=== PATIENT | male | born 1985 | race Caucasian/White ===

== ENCOUNTER 2017-10-26 19:38 | Emergency (ER) | payer OTHER ==
--- NOTE | 2017-10-26 20:41 | RAD REPORT ---
EXAM DESCRIPTION: RAD - Chest Single View - 10/26/2017 8:35 pm CLINICAL HISTORY: Chest pain. COMPARISON: None. FINDINGS: Portable technique limits examination quality. The lungs are grossly clear. The heart is normal in size. No displaced fractures. IMPRESSION: No acute intrathoracic process suspected.
[2017-10-26 20:50] LABS: Absolute Lymphocytes (CBC) 3.2 K/uL (0.7-4.9); Absolute Monocytes 0.8 K/uL (0.1-1.3); Absolute Neutrophil 5.8 K/uL (1.8-8.0); Basophils % 1.1 % (0-1.3); Eosinophils % 1.1 % (0-4.4); Hematocrit 42.7 % (39.6-49.0); Lymphocytes % 31.7 % (15.3-44.8); MCH 27.2 pg (27.0-35.0); MCV 83.3 fL (80-100); MPV 8.1 fL (7.6-11.3); Monocytes % 8.1 % (3.3-12.3); RBC Red Blood Cell Count 5.12 M/uL (4.33-5.43)
[2017-10-26 20:56] LABS: Protime INR 1.15
[2017-10-26 20:57] LABS: Bicarbonate 29 mEq/L (21-31); Glucose Level 93 mg/dL (65-120); Potassium 3.8 mEq/L (3.6-5.0); Sodium Level 134 mEq/L (135-145)
[2017-10-26 21:03] LABS: ALT/SGPT 20 IU/L (10-60); AST/SGOT 18 IU/L (10-42); Albumin 4.2 g/dL (3.2-5.5); Alkaline Phosphatase 68 IU/L (42-121); BUN Blood Urea Nitrogen 11 mg/dL (6-20); Bilirubin Direct 0.1 mg/dL (0-0.2); Bilirubin Total 0.9 mg/dL (0.3-1.2); Creatine Phosphokinase 110 IU/L (22-269); Magnesium 1.8 mg/dL (1.8-2.5); Protein, Total 7.7 g/dL (6.0-8.3)
[2017-10-26 21:06] LABS: CKMB Creatine Kinase MB 0.6 ng/ml (0.3-4.0)
--- NOTE | 2017-10-26 21:55 | ER ---
Nurse's Notes [facility] Name: Bolivar Brown Age: 32 yrs Sex: Male : 1985 Arrival Date: 10/26/2017 Time: 19:41 Bed 19 Private MD: Diagnosis: Chest pain, unspecified Presentation: 10/26 19:57 Presenting complaint: Patient states: I have been having pain in my upper back, chest, la1 and pain when I swallow that feels like it is deep in my chest. Transition of care: patient was not received from another setting of care. Onset of symptoms was October 26, 2017. Care prior to arrival: None. 19:57 Method Of Arrival: Ambulatory la1 19:57 Acuity: PEDRO 3 la1 Triage Assessment: 22:13 General: Behavior is calm, cooperative, appropriate for age. Musculoskeletal: No tl1 deficits noted. Historical: - Allergies: 19:59 No Known Allergies; la1 - PMHx: 19:59 Hypertension; la1 - Immunization history:: Adult Immunizations up to date. - Social history:: Smoking status: Patient/guardian denies using tobacco. - Family history:: not pertinent. Screenin:45 Abuse screen: Denies threats or abuse. Denies injuries from another. Nutritional tl1 screening: No deficits noted. Tuberculosis screening: No symptoms or risk factors identified. Fall Risk IV access (20 points). Assessment: 20:53 General: Appears in no apparent distress. Pain: Complains of pain in chest. Neuro: tl1 Level of Consciousness is awake, alert, obeys commands, Oriented to person, place, time, situation. Cardiovascular: Reports chest pain. Respiratory: Airway is patent Trachea midline Respiratory effort is even, unlabored, Breath sounds are clear bilaterally. GI: Abdomen is obese, Bowel sounds present X 4 quads. Abd is soft and non tender X 4 quads. : No signs and/or symptoms were reported regarding the genitourinary system. EENT: No signs and/or symptoms were reported regarding the EENT system. Derm: No signs and/or symptoms reported regarding the dermatologic system. 22:12 Reassessment: Patient appears in no apparent distress at this time. Patient and/or tl1 family updated on plan of care and expected duration. Pain level reassessed. Patient is alert, oriented x 3, equal unlabored respirations, skin warm/dry/pink. Patient denies pain at this time. Patient states feeling better. Patient states symptoms have improved. Vital Signs: 19:59 BP 170 / 110; Pulse 86; Resp 16; Temp 97.9; Pulse Ox 100% on R/A; Weight 185.07 kg; la1 Height 5 ft. 11 in. (180.34 cm); 20:44 BP 134 / 76; Pulse 80; Resp 20; Pulse Ox 98% ; tl1 22:12 BP 132 / 89; Pulse 83; Resp 17; Temp 98; Pulse Ox 100% on R/A; Pain 0/10; tl1 19:59 Body Mass Index 56.90 (185.07 kg, 180.34 cm) la1 ED Course: 19:41 Patient arrived in ED. do 19:58 Triage completed. la1 19:59 Arm band placed on right wrist. la1 20:00 Patient has correct armband on for positive identification. Placed in gown. Bed in low tl1 position. Call light in reach. Side rails up X 1. Adult w/ patient. 20:19 Adriana Ibrahim, RN is Primary Nurse. tl1 20:35 XRAY Chest (1 view) In Process Unspecified. EDMS 20:35 X-ray completed. Portable x-ray completed in exam room. Patient tolerated procedure kc2 well. 20:45 No provider procedures requiring assistance completed. Inserted saline lock: 20 gauge tl1 in right antecubital area, using aseptic technique. Blood collected. 21:08 Kristian Delgadillo MD is Attending Physician. ma2 22:12 IV discontinued, intact, bleeding controlled, No redness/swelling at site. Pressure tl1 dressing applied. Administered Medications: No medications were administered Outcome: 21:54 Discharge ordered by . ma2 22:13 Discharged to home ambulatory, with family. tl1 22:13 Condition: good 22:13 Discharge instructions given to patient, family, Instructed on discharge instructions, follow up and referral plans. medication usage, Demonstrated understanding of instructions, follow-up care, medications, Prescriptions given X 1. 22:14 Patient left the ED. tl1 Signatures: Dispatcher [employer] EDMS Jorge Suárez RN RN la1 Lasagna, Tonya, RN RN tl1 Chad, Emilia do Andujar, Evi kc2 Alzahri, Mohammad, MD MD ma2
--- NOTE | 2017-10-26 21:55 | EDPHYS ---
Physician Documentation [facility] Name: Bolivar Brown Age: 32 yrs Sex: Male : 1985 Arrival Date: 10/26/2017 Time: 19:41 Bed 19 Private MD: ED Physician Kristian Delgadillo HPI: 10/26 21:40 This 32 yrs old Male presents to ER via Ambulatory with complaints of Back ma2 Pain, Chest Pain, Pain with Swallowing. 21:40 The patient presents with pain that is acute. The symptoms are located in the ma2 substernal chest burning after food constant x 2 days . Onset: The symptoms/episode began/occurred gradually, 2 day(s) ago. Associated signs and symptoms: Pertinent positives: none Pertinent negatives: chest pain, constipation, dysuria, hematuria, nausea. Modifying factors: the patient symptoms are aggravated by. Severity of symptoms: At their worst the symptoms were mild. The patient has experienced a previous episode. Historical: - Allergies: 19:59 No Known Allergies; la1 - PMHx: 19:59 Hypertension; la1 - Immunization history:: Adult Immunizations up to date. - Social history:: Smoking status: Patient/guardian denies using tobacco. - Family history:: not pertinent. ROS: 21:40 Constitutional: Negative for fever, chills, and weight loss, Eyes: Negative for injury, ma2 pain, redness, and discharge, Neck: Negative for injury, pain, and swelling, Cardiovascular: Negative for chest pain, palpitations, and edema, Respiratory: Negative for shortness of breath, cough, wheezing, and pleuritic chest pain, Abdomen/GI: Negative for abdominal pain, nausea, diarrhea, and constipation, : Negative for injury, bleeding, discharge, and swelling, MS/Extremity: Negative for injury and deformity, Skin: Negative for injury, rash, and discoloration. 21:40 All other systems are negative. Exam: 21:40 Constitutional: This is a well developed, well nourished patient who is awake, alert, ma2 and in no acute distress. Head/Face: Normocephalic, atraumatic. Neck: Trachea midline, no thyromegaly or masses palpated, and no cervical lymphadenopathy. Supple, full range of motion without nuchal rigidity, or vertebral point tenderness. No Meningismus. Chest/axilla: Normal chest wall appearance and motion. Nontender with no deformity. No lesions are appreciated. Cardiovascular: Regular rate and rhythm with a normal S1 and S2. No gallops, murmurs, or rubs. Normal PMI, no JVD. No pulse deficits. Respiratory: Lungs have equal breath sounds bilaterally, clear to auscultation and percussion. No rales, rhonchi or wheezes noted. No increased work of breathing, no retractions or nasal flaring. Abdomen/GI: Soft, non-tender, with normal bowel sounds. No distension or tympany. No guarding or rebound. No evidence of tenderness throughout. Vital Signs: 19:59 BP 170 / 110; Pulse 86; Resp 16; Temp 97.9; Pulse Ox 100% on R/A; Weight 185.07 kg; la1 Height 5 ft. 11 in. (180.34 cm); 20:44 BP 134 / 76; Pulse 80; Resp 20; Pulse Ox 98% ; tl1 22:12 BP 132 / 89; Pulse 83; Resp 17; Temp 98; Pulse Ox 100% on R/A; Pain 0/10; tl1 19:59 Body Mass Index 56.90 (185.07 kg, 180.34 cm) la1 MDM: 21:09 Patient medically screened. ma2 21:40 Differential diagnosis: Basilar Pneumonia Fatigue sprain, PUD, GERD. ma2 21:53 Data reviewed: vital signs, nurses notes. Counseling: I had a detailed discussion with ma2 the patient and/or guardian regarding: the historical points, exam findings, and any diagnostic results supporting the discharge/admit diagnosis, the need for outpatient follow up. Medical screen evaluation completed. EMTALA emergency medical condition absent. 10/26 20:22 Order name: Basic Metabolic Panel; Complete Time: 21:36 tl1 10/26 20:22 Order name: BNP; Complete Time: 21:36 tl1 10/26 20:22 Order name: CBC with Diff; Complete Time: 21:36 tl1 10/26 20:22 Order name: Ckmb; Complete Time: 21:36 tl1 10/26 20:22 Order name: CPK; Complete Time: 21:36 tl1 10/26 20:22 Order name: LFT's; Complete Time: 21:36 tl1 10/26 20:22 Order name: Magnesium; Complete Time: 21:36 tl1 10/26 20:22 Order name: PT-INR; Complete Time: 21:36 tl1 10/26 20:22 Order name: Ptt, Activated; Complete Time: 21:36 tl1 10/26 20:22 Order name: Troponin (emerg Dept Use Only); Complete Time: 21:36 tl1 10/26 20:22 Order name: XRAY Chest (1 view); Complete Time: 21:36 tl1 10/26 20:22 Order name: EKG; Complete Time: 20:23 tl1 10/26 20:22 Order name: Cardiac monitoring; Complete Time: 20:48 tl1 10/26 20:22 Order name: EKG - Nurse/Tech; Complete Time: 20:48 tl1 10/26 20:22 Order name: IV Saline Lock; Complete Time: 20:48 tl1 10/26 20:22 Order name: Labs collected and sent; Complete Time: 20:48 tl1 10/26 20:22 Order name: O2 Per Protocol; Complete Time: 20:48 tl1 10/26 20:22 Order name: O2 Sat Monitoring; Complete Time: 20:48 tl1 Administered Medications: No medications were administered Disposition: 10/26/17 21:54 Discharged to Home. Impression: Chest pain, unspecified. - Condition is Stable. - Prescriptions for pantoprazole 20 mg Oral tablet,delayed release (DR/EC) - take 1 tablet by ORAL route once daily; 30 tablet. - Medication Reconciliation Form, Thank You Letter, Antibiotic Education, Prescription Opioid Use form. - Follow up: Private Physician; When: Tomorrow; Reason: Continuance of care. - Problem is new. - Symptoms are unchanged. Signatures: Dispatcher [employer] EDMS Jorge Suárez, RN RN la1 Adriana Ibrahim RN RN tl1 Kristian Delgadillo MD MD ma2
[2017-10-26] MEDS ORDERED: MAGNE/ALUM HYDROXD 30 ML UCUP ONE (22:08)
--- NOTE | 2017-10-28 22:39 | EKG ---
Test Date: 2017-10-26 Test Time: 20:28:04 Oven Operator Automatic: MEASUREMENT RESULTS: Intervals: Rate: 77 MO: 158 QRSD: 116 QT: 382 QTc: 432 Barnes: P: 39 MO: 158 QRS: 6 T: 33 INTERPRETIVE STATEMENTS: Normal sinus rhythm Incomplete right bundle branch block Borderline ECG No previous ECG available for comparison Electronically Signed On 10-28-17 22:39:07 CDT by Dequan Chacko
== END 2017-10-26 22:14 | disposition home or self-care (01) ==
LOC: ER 19:38
DX: R07.9 Chest pain, unspecified (principal)
CPT/HCPCS: 36415; 71045; 80048; 80076; 82550; 82553; 83735; 83880; 84484; 85025; 85610; 85730; 93005; 99284

== ENCOUNTER 2018-07-29 18:45 | Emergency (ER) | payer OTHER ==
[2018-07-29] MEDS ORDERED: KETOROLAC 30 MG/ML INJ ONE (20:06)
[2018-07-29 20:13] LABS: Absolute Lymphocytes (CBC) 2.1 K/uL (0.7-4.9); Absolute Monocytes 0.7 K/uL (0.1-1.3); Absolute Neutrophil 5.4 K/uL (1.8-8.0); Basophils % 1.3 % (0-1.3); Hematocrit 43.8 % (39.6-49.0); Lymphocytes % 24.9 % (15.3-44.8); MPV 7.9 fL (7.6-11.3); Monocytes % 8.1 % (3.3-12.3); RBC Red Blood Cell Count 5.26 M/uL (4.33-5.43)
[2018-07-29 20:32] LABS: ALT/SGPT 26 U/L (12-78); AST/SGOT 14 U/L (15-37); Albumin 3.9 g/dL (3.4-5.0); Alkaline Phosphatase 87 U/L (45-117); BUN Blood Urea Nitrogen 12 mg/dL (7-18); Bicarbonate 28 mmol/L (21-32); Bilirubin Direct 0.2 mg/dL (0-0.2); Bilirubin Total 0.5 mg/dL (0.2-1.0); Glucose Level 84 mg/dL (74-106); Lipase 84 U/L (73-393); Protein, Total 7.9 g/dL (6.4-8.2); Sodium Level 139 mmol/L (136-145)
--- NOTE | 2018-07-29 20:36 | RAD REPORT ---
EXAM DESCRIPTION: [facility]07/29/2018 8:18 pm CLINICAL HISTORY: Right leg pain . COMPARISON: None. FINDINGS: Right common femoral, superficial femoral, popliteal and right posterior tibial veins are compressible and demonstrate augmentation. Doppler demonstrates good flow. IMPRESSION: No evidence of deep venous thrombosis involving the right lower extremity.
--- NOTE | 2018-07-29 22:29 | ER ---
Nurse's Notes [facility] Name: Bolivar Brown Age: 33 yrs Sex: Male : 1985 Arrival Date: 07/29/2018 Time: 18:47 Bed 26 Private MD: Diagnosis: Idiopathic peripheral autonomic neuropathy;Headache Presentation: 07/29 18:56 Presenting complaint: Patient states: when he goes to sleep at night his right temporal bb area gets numb and he has been having headaches also, starting Sunday his legs are feeling numb starting in his feet and up higher on his right leg. Transition of care: patient was not received from another setting of care. Onset of symptoms was July 22, 2018. Risk Assessment: Do you want to hurt yourself or someone else? Patient reports no desire to harm self or others. Initial Sepsis Screen: Does the patient meet any 2 criteria? No. Patient's initial sepsis screen is negative. Does the patient have a suspected source of infection? No. Patient's initial sepsis screen is negative. Care prior to arrival: None. 18:56 Method Of Arrival: Ambulatory bb 18:56 Acuity: PEDRO 3 bb Triage Assessment: 18:59 Headache History: The patient has had previous headaches and this one is different than bb previous episodes. 21:00 Pain: Pain currently is 2 out of 10 on a pain scale. Pain began 1 week ago Also mg2 complains of no other associated symptoms. 21:00 General: Appears in no apparent distress. comfortable, Behavior is calm, cooperative. mg2 Historical: - Allergies: 18:59 No Known Allergies; bb - Home Meds: 18:59 valsartan (occasionally) [Active]; bb - PMHx: 18:59 Hypertension; bb - PSHx: 18:59 Left ACL repair; bb - Immunization history:: Adult Immunizations up to date. - Social history:: Smoking status: Patient/guardian denies using tobacco, Patient/guardian denies using alcohol, street drugs. - Ebola Screening: : No symptoms or risks identified at this time. Screenin:36 Abuse screen: Denies threats or abuse. Nutritional screening: No deficits noted. tl3 Tuberculosis screening: No symptoms or risk factors identified. Fall Risk None identified. Assessment: 19:36 General: Appears in no apparent distress. obese, well groomed, well developed, well tl3 nourished, Behavior is calm, cooperative, appropriate for age. Neuro: Level of Consciousness is awake, alert, obeys commands, Oriented to person, place, time, situation, Appropriate for age. Cardiovascular: Patient's skin is warm and dry. Respiratory: Airway is patent Respiratory effort is even, unlabored, Respiratory pattern is regular, symmetrical. GI: No signs and/or symptoms were reported involving the gastrointestinal system. : No signs and/or symptoms were reported regarding the genitourinary system. EENT: No signs and/or symptoms were reported regarding the EENT system. Derm: No signs and/or symptoms reported regarding the dermatologic system. Vital Signs: 18:59 BP 148 / 77; Pulse 89; Resp 18 S; Temp 97.5(TE); Pulse Ox 100% on R/A; Weight 183.25 kg bb (R); Height 5 ft. 10 in. (177.80 cm) (R); Pain 7/10; 21:00 BP 140 / 70; Pulse 78; Resp 18; Pulse Ox 100% on R/A; Pain 0/10; mg2 22:51 BP 135 / 77; Pulse 80; Resp 18; Pulse Ox 100% on R/A; Pain 0/10; mg2 18:59 Body Mass Index 57.97 (183.25 kg, 177.80 cm) bb ED Course: 18:47 Patient arrived in ED. am2 18:58 Triage completed. bb 18:59 Arm band placed on left wrist. Patient placed in waiting room, Patient notified of wait bb time. Family accompanied patient. 19:15 Bita Bryant, JAVY is Primary Nurse. tl3 19:21 Gen Kemp MD is Attending Physician. tw4 19:38 Patient has correct armband on for positive identification. Bed in low position. Call tl3 light in reach. Pulse ox on. NIBP on. 19:38 No provider procedures requiring assistance completed. tl3 20:04 Patient taken to ultrasound. via wheelchair. tl3 20:04 Initial lab(s) drawn, sent to lab. Inserted saline lock: 20 gauge in right antecubital tl3 area, using aseptic technique. Blood collected. 20:19 Extremity Venous Uni Ltd US In Process Unspecified. EDMS 22:27 Rudi Brooks MD is Referral Physician. tw4 22:27 Saul Hannah DO is Referral Physician. tw4 22:54 IV discontinued, intact, bleeding controlled, No redness/swelling at site. Pressure mg2 dressing applied. Administered Medications: 20:04 Drug: TORadol 30 mg Route: IVP; Infused Over: 2 mins; Site: left antecubital; tl3 22:10 Follow up: Response: No adverse reaction; Marked relief of symptoms tl3 Outcome: 22:28 Discharge ordered by . tw4 22:53 Discharged to home ambulatory, with family. mg2 22:53 Condition: stable 22:53 Discharge instructions given to patient, family, Instructed on discharge instructions, follow up and referral plans. medication usage, Demonstrated understanding of instructions, follow-up care, medications, Prescriptions given X 1. 22:54 Patient left the ED. mg2 Signatures: Dispatcher [employer] EDMS Elva Panda RN RN bb Heena Eduardo Terrence, MD MD tw4 Bita Bryant RN RN tl3 Royce Alford RN RN mg2
--- NOTE | 2018-07-29 22:29 | EDPHYS ---
Physician Documentation [facility] Name: Bolivar Brown Age: 33 yrs Sex: Male : 1985 Arrival Date: 07/29/2018 Time: 18:47 Bed 26 Private MD: ED Physician Gen Kemp HPI: 07/30 21:47 This 33 yrs old Male presents to ER via Ambulatory with complaints of tw4 Headache, Leg Pain. 21:47 The patient complains of pain to the right yarsanism. The patient describes the headache tw4 as aching. Onset: The symptoms/episode began/occurred 1 week(s) ago. Associated signs and symptoms: The patient has no apparent associated signs or symptoms. Severity of symptoms: At its worst the pain was. Headache History: Denies prior headaches. The symptoms are alleviated by nothing. the symptoms are aggravated by nothing. The patient has not experienced similar symptoms in the past. Historical: - Allergies: 07/29 18:59 No Known Allergies; bb - Home Meds: 18:59 valsartan (occasionally) [Active]; bb - PMHx: 18:59 Hypertension; bb - PSHx: 18:59 Left ACL repair; bb - Immunization history:: Adult Immunizations up to date. - Social history:: Smoking status: Patient/guardian denies using tobacco, Patient/guardian denies using alcohol, street drugs. - Ebola Screening: : No symptoms or risks identified at this time. ROS: 07/30 21:47 Constitutional: Negative for fever, chills, and weight loss, Cardiovascular: Negative tw4 for chest pain, palpitations, and edema, Respiratory: Negative for shortness of breath, cough, wheezing, and pleuritic chest pain, Abdomen/GI: Negative for abdominal pain, nausea, vomiting, diarrhea, and constipation, Back: Negative for injury and pain, Skin: Negative for injury, rash, and discoloration, Neuro: Negative for headache, weakness, numbness, tingling, and seizure. Exam: 21:47 Constitutional: This is a well developed, well nourished patient who is awake, alert, tw4 and in no acute distress. Head/Face: Normocephalic, atraumatic. Chest/axilla: Normal chest wall appearance and motion. Nontender with no deformity. No lesions are appreciated. Cardiovascular: Regular rate and rhythm with a normal S1 and S2. No gallops, murmurs, or rubs. Normal PMI, no JVD. No pulse deficits. Respiratory: Lungs have equal breath sounds bilaterally, clear to auscultation and percussion. No rales, rhonchi or wheezes noted. No increased work of breathing, no retractions or nasal flaring. Abdomen/GI: Soft, non-tender, with normal bowel sounds. No distension or tympany. No guarding or rebound. No evidence of tenderness throughout. Back: No spinal tenderness. No costovertebral tenderness. Full range of motion. MS/ Extremity: Pulses equal, no cyanosis. Neurovascular intact. Full, normal range of motion. Neuro: Awake and alert, GCS 15, oriented to person, place, time, and situation. Cranial nerves II-XII grossly intact. Motor strength 5/5 in all extremities. Sensory grossly intact. Cerebellar exam normal. Normal gait. Vital Signs: 07/29 18:59 BP 148 / 77; Pulse 89; Resp 18 S; Temp 97.5(TE); Pulse Ox 100% on R/A; Weight 183.25 kg bb (R); Height 5 ft. 10 in. (177.80 cm) (R); Pain 7/10; 21:00 BP 140 / 70; Pulse 78; Resp 18; Pulse Ox 100% on R/A; Pain 0/10; mg2 22:51 BP 135 / 77; Pulse 80; Resp 18; Pulse Ox 100% on R/A; Pain 0/10; mg2 18:59 Body Mass Index 57.97 (183.25 kg, 177.80 cm) MDM: 19:21 Patient medically screened. tw4 07/30 21:47 Differential diagnosis: cluster headache, hypertensive headache, hypoglycemia, tw4 hyponatremia, uremia. Data reviewed: vital signs, nurses notes. Counseling: I had a detailed discussion with the patient and/or guardian regarding: the historical points, exam findings, and any diagnostic results supporting the discharge/admit diagnosis. Special discussion: I discussed with the patient/guardian in detail that at this point there is no indication for admission to the hospital. It is understood, however, that if the symptoms persist or worsen the patient needs to return immediately for re-evaluation. 07/29 19:48 Order name: Basic Metabolic Panel; Complete Time: 22:04 tw4 /14 22:04 Interpretation: Within normal limits. 07/29 19:48 Order name: CBC with Diff; Complete Time: 22:04 07/29 22:04 Interpretation: Within normal limits. 07/29 19:47 Order name: Extremity Venous Uni Ltd US 07/29 19:48 Order name: Creatinine for Radiology 07/29 19:48 Order name: Hepatic Function; Complete Time: 22:04 07/29 22:04 Interpretation: Normal except: AST 14; GLOB 4.0; A/G 1.0. 07/29 19:48 Order name: Lipase; Complete Time: 22:04 07/29 22:04 Interpretation: Within normal limits: LIP 84. 07/29 19:48 Order name: IV Saline Lock; Complete Time: 20:01 07/29 19:48 Order name: Labs collected and sent; Complete Time: 20: Administered Medications: 07/29 20:04 Drug: TORadol 30 mg Route: IVP; Infused Over: 2 mins; Site: left antecubital; tl3 22:10 Follow up: Response: No adverse reaction; Marked relief of symptoms tl3 Disposition: 07/29/18 22:28 Discharged to Home. Impression: Idiopathic peripheral autonomic neuropathy, Headache. - Condition is Stable. - Discharge Instructions: General Headache Without Cause, Focal Neuropathy. - Prescriptions for Fiorinal 50- 325-40 mg Oral Capsule - take 1 capsule by ORAL route every 4 hours As needed - not to exceed 6 capsules per day; 20 capsule. - Medication Reconciliation Form, Thank You Letter, Antibiotic Education, Prescription Opioid Use form. - Follow up: Private Physician; When: Upon discharge from the Emergency Department; Reason: Recheck today's complaints, Continuance of care, Re-evaluation by your physician. Follow up: Rudi Brooks MD; When: Upon discharge from the Emergency Department; Reason: Recheck today's complaints, Continuance of care, Re-evaluation by your physician. Follow up: Saul Hannah DO; When: Upon discharge from the Emergency Department; Reason: Recheck today's complaints, Continuance of care, Re-evaluation by your physician. - Problem is new. - Symptoms have improved. Signatures: Dispatcher [employer] EDMS Elva Panda, RN RN Gen Cueto MD MD tw4 Bita Bryant, JAVY RN tl3 Royce Alford RN RN mg2 Corrections: (The following items were deleted from the chart) 22:28 22:28 07/29/2018 22:28 Discharged to Home. Impression: Idiopathic peripheral autonomic tw4 neuropathy. Condition is Stable. Forms are Medication Reconciliation Form, Thank You Letter, Antibiotic Education, Prescription Opioid Use. Follow up: Private Physician; When: Upon discharge from the Emergency Department; Reason: Recheck today's complaints, Continuance of care, Re-evaluation by your physician. Follow up: Rudi Brooks; When: Upon discharge from the Emergency Department; Reason: Recheck today's complaints, Continuance of care, Re-evaluation by your physician. Follow up: Saul Hannah; When: Upon discharge from the Emergency Department; Reason: Recheck today's complaints, Continuance of care, Re-evaluation by your physician. Problem is new. Symptoms have improved. tw4 22:54 22:28 07/29/2018 22:28 Discharged to Home. Impression: Idiopathic peripheral autonomic mg2 neuropathy; Headache. Condition is Stable. Forms are Medication Reconciliation Form, Thank You Letter, Antibiotic Education, Prescription Opioid Use. Follow up: Private Physician; When: Upon discharge from the Emergency Department; Reason: Recheck today's complaints, Continuance of care, Re-evaluation by your physician. Follow up: Rudi Brooks; When: Upon discharge from the Emergency Department; Reason: Recheck today's complaints, Continuance of care, Re-evaluation by your physician. Follow up: Saul Hannah; When: Upon discharge from the Emergency Department; Reason: Recheck today's complaints, Continuance of care, Re-evaluation by your physician. Problem is new. Symptoms have improved. tw4
== END 2018-07-29 22:54 | disposition home or self-care (01) ==
LOC: ER 18:45
DX: G90.09 Other idiopathic peripheral autonomic neuropathy (principal); I10 Essential (primary) hypertension
CPT/HCPCS: 36415; 80048; 80076; 83690; 85025; 93971; 96374; 99284

== ENCOUNTER 2024-07-31 07:34 | Day surgery (SDC) | payer OTHER ==
--- NOTE | 2024-07-11 13:38 | EKG ---
Test Date: 2024-07-10 Test Time: 11:36:11 Resource Protection Specialist: WOODY MEASUREMENT RESULTS: Intervals: Rate: 65 VT: 146 QRSD: 112 QT: 392 QTc: 407 Thurman: P: 46 VT: 146 QRS: 29 T: 57 INTERPRETIVE STATEMENTS: Normal sinus rhythm Normal ECG Compared to ECG 10/26/2017 20:28:04 Incomplete right bundle-branch block no longer present Electronically Signed On 07-11-24 13:36:00 DEVELOPMENTAL MATHEMATICS PROFESSOR by Surinder Forte
[2024-07-31] MEDS ORDERED: LIDOCAINE 1% MPF 5 ML VIAL ONE ×2 (07:40→09:14)
[2024-07-31] MEDS ORDERED: propofoL 200 MG/20 ML VIAL IV ONE ×2 (07:40→09:14)
[2024-07-31] MEDS: Ringers Lactate 1,000 ML IV ONE (08:20)
[2024-08-01 02:48] VITALS: BP 131/99; TEMP 97; O2SAT 100
== END 2024-07-31 10:33 | disposition home or self-care (01) ==
LOC: OR 07:34
PROVIDERS: ATTEND Internal Medicine Gastroenterology
PROC: 0DBP8ZX Excision of Rectum, Via Natural or Artificial Opening Endoscopic, Diagnostic (ICD-10-PCS; 2024-07-31)
PROC: 0D5K8ZZ Destruction of Ascending Colon, Via Natural or Artificial Opening Endoscopic (ICD-10-PCS; 2024-07-31)
PROC: 0DBK8ZX Excision of Ascending Colon, Via Natural or Artificial Opening Endoscopic, Diagnostic (ICD-10-PCS; principal; 2024-07-31 09:15)
DX: Q27.33 Arteriovenous malformation of digestive system vessel (principal); D50.9 Iron deficiency anemia, unspecified; K76.0 Fatty (change of) liver, not elsewhere classified; K64.8 Other hemorrhoids; K57.30 Diverticulosis of large intestine without perforation or abscess without bleeding; K63.5 Polyp of colon; Z80.0 Family history of malignant neoplasm of digestive organs
CPT/HCPCS: 93005; 88305; 45385; 45388; J2704 ×2; J2003 ×2; J7120